=== PATIENT | female | born 1995 | race Caucasian/White ===

== ENCOUNTER → 2019-04-22 | Outpatient (CLI) | payer OTHER, MEDICAID, SELFPAY ==
[2016-06-09 12:34] VITALS: BMI 23.0
[2019-04-22 17:20] LABS: Absolute Lymphocyte Count 3.08 X10^3/uL (0.83-4.51); Absolute Neutrophil Count 5.9 X10^3/uL (2.0-7.7); Basophil# 0.05 X10^3/uL; Basophil% 0.5 % (0-1); Eosinophil# 0.22 X10^3/uL; Eosinophils% 2.2 % (0-5); Hematocrit 41.8 % (37-47); Hemoglobin 13.9 g/dL (12.0-15.0); Lymphocyte # 3.08 X10^3/ul (4.0); Lymphocyte % 30.3 % (19-41); Mean Corp Hgb Conc 33.3 g/dL (32-36); Mean Corpuscular Hgb 32.1 pg (27.0-32.0); Mean Corpuscular Volume 96.5 fL (81-99); Mean Platelet Vol. 9.1 fl (6.2-12.0); Monocyte# 0.85 X10^3/uL; Monocyte% 8.4 % (0-10); NRBC Flagged by Analyzer 0 % (0-5); Neutrophil # 5.91 X10^3/uL (2.7-7.7); Neutrophil % 58.1 % (47-70); Platelet Count 343 K/mm3 (150-450); RBC Distribution Width CV 12.2 % (11.6-14.6); RBC Distribution Width SD 43.2 fl (35.1-43.9); Red Blood Count 4.33 M/mm3 (4.2-5.4); White Blood Count 10.2 K/mm3 (4.4-11.0)
[2019-04-22 18:01] LABS: Carbamazepine (Tegretol) 10.5 ug/mL (4.0-12.0)
[2019-04-22 18:06] LABS: ALB/GLOB Ratio 0.9 RATIO (0.9-2.4); AST(SGOT) 13 U/L (15-37); Alanine Aminotransfer ALT/SGPT 27 U/L (13-56); Albumin, Serum 3.8 g/dL (3.2-5.0); Alkaline Phosphatase 117 U/L (45-117); Anion Gap 9 (5-15); BUN 8 mg/dL (7-18); BUN/Creat Ratio 11.6 RATIO (10-20); Bilirubin, Direct < 0.05 mg/dL (0.00-0.30); Calcium,Total 8.6 mg/dL (8.5-10.1); Chloride 115 mmol/L (98-107); Creatinine, Serum 0.69 mg/dL (0.55-1.02); EST Glomerular Filtration Rate 112 mL/min (>60); Est Glom Filt Rate - Afr Amer 136 mL/min (>60); Globulin 4.1 g/dL (2.2-4.2); Glucose 88 mg/dL (74-106); Potassium 3.5 mmol/L (3.5-5.1); Protein, Total 7.9 g/dL (6.4-8.2); Sodium Level 145 mmol/L (136-145)
== END | disposition home or self-care (01) ==
PROVIDERS: Family Provider Family Medicine; PCP Family Medicine; Referring Provider Nurse Practitioner Family; Visit Provider Nurse Practitioner Family
DX: R56.9 Unspecified convulsions (principal)
CPT/HCPCS: 36415; 80053; 80156; 82248; 85025

== ENCOUNTER 2025-06-03 15:30 | Outpatient (RCR) | payer MEDICARE, MEDICAID, SELFPAY ==
--- NOTE | 2025-04-07 16:25 | HP.PTEVAL ---
Patient's Visit Information Visit Information Visit Information: OBIE MA is a 29 year old F referred to Physical Therapy by BRODERICK Spear with a diagnosis of Thigh pain. Date of Evaluation: 04/07/25 Physical Therapist: Giselle Romero DPT Visit Plan Frequency: 2x /Week Duration: 4 Weeks Plan: Focus on LE and core strength/stabilization HEP Given IE: sit to stand, hip add with ball, hip abd with GTB *Pt has history of TBI Subjective Subjective: Patient reports that her left leg was bothering her- for about a week and a half in the left hip and into the groin. She has not had pain for the last 5 days. They did not do any x-rays. She has had heel cord extensions both sides 1x and right arch support and a scoliotic curve. Right side she did have braces. During her day program they do a lot of movement- cleans tables and they also do the treadmill and activities. She will complain of pain in her feet when she has to walk more than 1/8 of a mile. 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 Objective Objective: Posture: forward head, rounded shoulders- can correct with verbal cues Gait: antalgic- right toes turned out to the side- decreased candelario Stairs: asc: recip with 2 HR- desc: non recip with 2 HR- poor control with descent HR/TR: able with UE A SLS: weight shift and reports pain when she lets go of the wall Sit to Stand: decreased control with descent- able without UE A ROM: WNL- does discomfort with IR/ER on the left Strength: Core: fair minus, Hip: 4-/5 throughout, Knee: 4+/5, Ankle: 5/5 Flex: no limitations Special Tests R Hip Scour: Negative R Hip SAMEER - Intraarticular Pathology: Negative R Hip FADDIR - Labrum: Negative L Hip Scour: Positive L Hip SAMEER - Intraarticular Pathology: Positive L Hip FADDIR - Labrum: Positive Balance/Special Test Scores Lower Extremity Functional Score: 36 Goals Goal 1:: Patient will be I with HEP and progression Goal Time Frame: 4-6 Weeks Goal 2:: Patient will asc/desc 8" stairs recip with 1 HR Goal Time Frame: 4-6 Weeks Goal 3:: Patient will maintain SLS for 10 sec without LOB or pain Goal Time Frame: 4-6 Weeks Goal 4:: Patient will report 80% improvement Goal Time Frame: 4-6 Weeks Rehabilitation Potential Physical Therapy Diagnosis: Patient presents with decrease LE strength, flex and muscular endurance leading to abnormal gait and increased pain with ADL's. Rehabilitation Potential: Good Anticipated Interventions Patient/Client Instruction: Educate patient on: Benefits of Fitness Program Therapeutic Exercise to Include: Strength training, Endurance training, Balance training, Coordination, Agility training, Body mechanics, Postural training, Flexibilty training, Gait and locomotor training, Neuromotor development, Dynamic Lumbar Stabilization and Scapular Strength/Stabilization For the Purpose of:: To improve muscle performance and motor function Text: Thank you for the opportunity to evaluate your patient. For Medicare and Medicare HMO plans, please review the plan of care and approve it. It will need to be FAXED BACK to us at [phone] for Medicare purposes. For Medicare only, by signing this I certify the plan of care. Please let me know if there are questions or concerns regarding this plan of care. Physician Signature: Date:
--- NOTE | 2025-05-04 16:07 | HP.PTREVAL ---
Re-Evaluation Intro: Asiya Yin, JING-C, It has been my pleasure to treat OBIE MA over the last 8 visits for Thigh pain. Please see the progress note below for an update on the physical therapy plan of care! Subjective Subjective: Pt reports that she still has the L thigh pain. Her hip pain does not hurt right now. She had the pain today at work while she was walking. She feels that she is stonger but the pain is still there. Objective Objective/Function: Gait: walks with R LE ER and short stride Major recurvatum B knees in standing Tender to palpation on the L lateral hip by the iliac crest. SLS 17 seconds 8 inch step down with the L leg caused pain in the L hip 6 inch step down with the L no pain 4 inch step down with the L no pain Stairs: up recip with 2 hand rails and down with the R leg first with 2 hand rails Pt demonstrated weak core muscles. Plan Plan Plan: Focus on hip and core strength...add hip abd machine in sitting as pt has a hard time isolating proper form with exercises. May add machines as appropriate. Work on descending steps. Balance/Gait/Functional tests Balance/Special Test Scores Lower Extremity Functional Score: 51 Goals Goals Goal 1:: Patient will be I with HEP and progression Goal Time Frame: 4-6 Weeks Goal 2:: Patient will asc/desc 8" stairs recip with 1 HR Goal Time Frame: 4-6 Weeks Goal 3:: Patient will maintain SLS for 10 sec without LOB or pain Goal Time Frame: 4-6 Weeks Goal Progress: Goal Met Goal 4:: Patient will report 80% improvement Goal Time Frame: 4-6 Weeks Anticipated Interventions Anticipated Interventions Patient/Client Instruction: Educate patient on: Benefits of Fitness Program Therapeutic Exercise to Include: Strength training, Endurance training, Balance training, Coordination, Agility training, Body mechanics, Postural training, Flexibilty training, Gait and locomotor training, Neuromotor development, Dynamic Lumbar Stabilization and Scapular Strength/Stabilization For the Purpose of:: To improve muscle performance and motor function Re-Evaluation Ending Re-evaluation ending: Please do not hesitate to contact me at [phone] by phone or if you have questions or concerns regarding this new plan of care! Sincerely, Salma Haas, MPT
--- NOTE | 2025-06-03 16:19 | HP.PTDCSUM ---
Discharge Summary D/C summary: It has been my pleasure to treat OBIE MA referred by Asiya Yin NP-C, with the diagnosis of Thigh pain for a total of 16 visit(s). Discharge Date: 06/03/25 Please see the following information for a summary of their discharge status. Subjective Subjective: Pt reports that her hip feels better. She says now that her L knee hurts. She says that she will do her exercises and ice it at home. Pt is excited she will go and get a garima mocho iced coffee after this. Pain Left hip: Pain Intensity (Out of 10): 5 Overall Improvement % Improvement: 100 Objective Objective/Function: L SLS 10 seconds with no complaint of pain Stairs: up recip with 1 hand rail and descends steps with the R leg first and then the L Sit stands X 10 with no UE support and no complaint of pain Goals Goal 1:: Patient will be I with HEP and progression Goal Progress: Progressing Goal 2:: Patient will asc/desc 8" stairs recip with 1 HR Goal Progress: Progressing Goal 3:: Patient will maintain SLS for 10 sec without LOB or pain Goal Progress: Goal Met Goal 4:: Patient will report 80% improvement Goal Progress: Goal Met Plan Plan: DC PT to HEP D/C Information Discharge Comments: DC PT to HEP d/c sentence: If there are questions or concerns regarding this patient's physical therapy, please feel free to call me at [phone]. Thank you for the referral of this patient. Sincerely, Salma Haas, MPT Balance/Gait/Functional tests Balance/Special Test Scores Lower Extremity Functional Score: 51 Improvement % Improvement: 100
== END 2025-06-03 19:00 | disposition home or self-care (01) ==
LOC: PT 15:30
PROVIDERS: Referring Provider Nurse Practitioner Family; Visit Provider Nurse Practitioner Family
DX: S76.912D Strain of unspecified muscles, fascia and tendons at thigh level, left thigh, subsequent encounter (principal)
CPT/HCPCS: 97110; 97162; 97530